=== PATIENT | female | born 1975 | race Caucasian/White ===

== ENCOUNTER 2020-12-21 09:36 | Outpatient (REF) | payer OTHER, SELFPAY ==
--- NOTE | ~2020-12-21 | XR_ITS ---
EXAMINATION: XR FOOT, LEFT CLINICAL INFORMATION: Left foot pain. COMPARISON: None. TECHNIQUE: AP, lateral, and oblique views of the left foot. FINDINGS: No acute fracture. Hallux valgus angulation at the 1st metatarsophalangeal joint with lateral subluxation of the hallux sesamoids and mild degenerative arthritis. No osseous erosion. Plantar calcaneal spur. No radiopaque foreign body. XR/XR foot LT min 3V IMPRESSION: 1. No acute fracture or dislocation. 2. Plantar calcaneal spur. 3. First metatarsophalangeal hallux valgus angulation with mild degenerative arthritis.
== END 2020-12-21 09:37 | disposition home or self-care (01) ==
LOC: HO.HMGCX 09:36
PROVIDERS: Visit Provider Hospitalist
DX: M79.672 Pain in left foot (principal)
CPT/HCPCS: 73630

== ENCOUNTER 2021-10-01 08:51 | Outpatient (REF) | payer OTHER, SELFPAY ==
[2021-10-01 09:15] LABS: MANUAL DIFF FLAG NO
[2021-10-01 09:49] LABS: Basophils Percent Auto 0.3 % (0-2); Eosinophils Absolute Auto 0.1 X10*3/uL (0.0-0.4); Eosinophils Percent Auto 0.9 % (0-4); Hematocrit 40.5 % (37.0-47.0); Hemoglobin 12.9 g/dl (12.0-16.0); Imm Gran Abs Auto 0.04 X10*3/uL (0.00-0.03); Imm Gran Pct Auto 0.4 % (0.0-0.4); Lymphocytes Absolute Auto 2.7 X10*3/uL (1.2-4.9); Lymphocytes Percent Auto 28.1 % (20-40); Mean Corpuscular HGB Conc 31.9 g/dl (31.0-35.0); Mean Corpuscular Hemoglobin 26.2 pg (27.0-33.0); Mean Corpuscular Volume 82.3 fL (80.0-98.0); Mean Platelet Volume 10.8 fL (9.4-12.3); Monocytes Absolute Auto 0.5 X10*3/uL (0.1-1.2); Monocytes Percent Auto 5.2 % (2-11); Neutrophils Absolute Auto 6.2 x10*3/uL (2.0-8.3); Neutrophils Percent Auto 65.1 % (45-73); Platelet Count 232 X10*3/uL (160-400); Red Blood Count 4.92 X10*6/uL (4.20-5.50); Red Cell Distribution Width 14.5 % (11.0-16.0); White Blood Count 9.6 X10*3/uL (4.8-10.8)
[2021-10-01 10:25] LABS: Alanine Aminotransferase 29 U/L (0-31); Albumin Level 3.8 g/dL (3.5-5.0); Alkaline Phosphatase 71 U/L (39-117); Anion Gap 11 (12-20); Aspartate Amino Transferase 19 U/L (5-31); Bilirubin Total 0.5 mg/dL (0.0-1.0); Blood Urea Nitrogen 10 mg/dL (9-16); Carbon Dioxide 25 mmol/L (22-29); Chloride 104 mmol/L (96-108); Cholesterol 200 mg/dL; Estimated Glomerular Filt Rate > 60; Glucose Fasting 100 mg/dL (60-99); Potassium 4.3 mmol/L (3.3-5.1); Sodium 136 mmol/L (135-145); Total Protein 6.8 g/dL (6.5-8.0); Triglycerides 168 mg/dL
[2021-10-01 10:37] LABS: HDL Cholesterol 40 mg/dL; LDL Cholesterol Calculated 127 mg/dl
[2021-10-01 10:47] LABS: Thyroid Stimulating Hormone 1.31 uIU/mL (0.32-4.0)
[2021-10-01 11:53] LABS: Reflex LDLD? No
== END 2021-10-01 08:52 | disposition home or self-care (01) ==
LOC: HO.LAB 08:51
PROVIDERS: PCP Family Medicine; Visit Provider Family Medicine
DX: Z00.00 Encounter for general adult medical examination without abnormal findings (principal)
CPT/HCPCS: 36415; 80053; 80061; 84443; 85025

== ENCOUNTER 2022-11-03 07:51 | Outpatient (REF) | payer OTHER, SELFPAY ==
[2022-11-03 07:59] LABS: MANUAL DIFF FLAG NO
[2022-11-03 08:54] LABS: Basophils Percent Auto 0.5 % (0-2); Eosinophils Absolute Auto 0.1 X10*3/uL (0.0-0.4); Eosinophils Percent Auto 1.3 % (0-4); Hematocrit 40.4 % (37.0-47.0); Hemoglobin 12.7 g/dl (12.0-16.0); Imm Gran Abs Auto 0.04 X10*3/uL (0.00-0.03); Imm Gran Pct Auto 0.5 % (0.0-0.4); Lymphocytes Absolute Auto 2.8 X10*3/uL (1.2-4.9); Mean Corpuscular HGB Conc 31.4 g/dl (31.0-35.0); Mean Corpuscular Volume 79.4 fL (80.0-98.0); Mean Platelet Volume 10.5 fL (9.4-12.3); Monocytes Absolute Auto 0.6 X10*3/uL (0.1-1.2); Neutrophils Absolute Auto 4.3 x10*3/uL (2.0-8.3); Neutrophils Percent Auto 54.7 % (45-73); Platelet Count 284 X10*3/uL (160-400); Red Blood Count 5.09 X10*6/uL (4.20-5.50); Red Cell Distribution Width 15.8 % (11.0-16.0); White Blood Count 7.9 X10*3/uL (4.8-10.8)
[2022-11-03 09:30] LABS: Alanine Aminotransferase 26 U/L (0-31); Albumin Level 3.9 g/dL (3.5-5.0); Alkaline Phosphatase 64 U/L (39-117); Anion Gap 13 (12-20); Aspartate Amino Transferase 22 U/L (5-31); Blood Urea Nitrogen 12 mg/dL (9-16); Calcium 9.1 mg/dL (8.4-10.2); Carbon Dioxide 27 mmol/L (22-29); Chloride 106 mmol/L (96-108); Cholesterol 219 mg/dL; Estimated Glomerular Filt Rate > 60; Glucose Fasting 108 mg/dL (60-99); HDL Cholesterol 41 mg/dL; LDL Cholesterol Calculated 147 mg/dl; Potassium 4.6 mmol/L (3.3-5.1); Sodium 141 mmol/L (135-145); Total Protein 6.7 g/dL (6.5-8.0); Triglycerides 155 mg/dL
[2022-11-03 09:48] LABS: Thyroid Stimulating Hormone 1.09 uIU/mL (0.32-4.0)
[2022-11-03 09:54] LABS: Reflex LDLD? No
== END 2022-11-03 07:52 | disposition home or self-care (01) ==
LOC: HO.LAB 07:51
PROVIDERS: PCP Family Medicine; Visit Provider Family Medicine
DX: Z00.00 Encounter for general adult medical examination without abnormal findings (principal); R03.0 Elevated blood-pressure reading, without diagnosis of hypertension; E66.09 Other obesity due to excess calories; D89.89 Other specified disorders involving the immune mechanism, not elsewhere classified; F32.A Depression, unspecified; F41.9 Anxiety disorder, unspecified
CPT/HCPCS: 36415; 80053; 80061; 84443; 85025

== ENCOUNTER 2023-07-26 13:23 | Outpatient (AMB) | payer OTHER, SELFPAY ==
[2023-07-26 13:39] VITALS: BP 124/82; PULSE 84; BMI 38.2
--- NOTE | 2023-07-26 13:39 | MHC.OFFVIS ---
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 She is a pleasant 48-year-old woman with prior history of hypertension, in the past had tried hydrochlorothiazide but developed side effects and stopped. Since then she has had continues high blood pressure and recently a brother being diagnosed with diabetes she wanted to take care of her health and increase exercise level. However with exercise she has notice exertional shortness of breath and also is noting chest pressure with exertion. She is concerned about the symptoms due to significant premature coronary artery disease in a dad who had his 1st cardiac event in the 40s. Patient also has mild hyperlipidemia with last LDL of 147 mg/dL. No known prior vascular disease. No history of diabetes although her fasting glucose is mildly elevated 108. She does say that she has high likelihood of obstructive sleep apnea as she has been told by her partner that she may have that. She denies any smoking. Denies any lightheadedness, syncope. No heart failure symptoms. Denies any prolonged palpitations irregular heartbeat although occasionally feels fluttering in her chest. She also has trying to reduce salt in her diet. [facility]MERLY [facility], [facility]–1983 Medical History HTN (hypertension) Family History Father CAD (coronary artery disease) Mother HTN (hypertension) Social History Patient Tobacco Use Status: Never used Tobacco Review of Systems Const Denies chills, Denies daytime sleepiness, Denies fatigue, Denies fever(s), Denies frequent falls, Denies poor appetite, Denies snoring, Denies stops breathing during sleep, Denies weakness, Denies weight gain and Denies weight loss Eyes Denies loss of vision ENT Denies dizziness and Denies hearing loss Card Denies chest pain, Denies claudication, Denies leg edema, Denies lightheadedness, Denies palpitations, Denies dyspnea, Denies dyspnea on exertion and Denies orthopnea Resp Denies cough, Denies excessive phlegm production, Denies dyspnea, Denies dyspnea on exertion, Denies snoring and Denies wheezing GI Denies abdominal pain, Denies hematochezia, Denies change in bowel habits, Denies nausea and Denies vomiting Denies urinary frequency and Denies dysuria Musc Denies arthralgias, Denies muscle weakness, Denies numbness and Denies other (frequent falls) Skin/Breast Denies nail changes and Denies rash Neuro Denies Abnormal speech present, Denies dizziness, Denies frequent falls, Denies loss of vision, Denies memory loss, Denies numbness and Denies weakness Psych Denies depression and Denies memory loss Endo Denies fatigue and Denies palpitations Alex/Lymph Reports easy bruising and Reports other (anemia) Aller/Immun Denies wheezing Physical Exam Vital Signs: Last Vital Signs Pulse 84 07/26/23 13:39 BP 124/82 07/26/23 13:39 BMI result Body Mass Index 38.2 Const General: cooperative, comfortable, no acute distress, alert, awake, Physically active and well groomed Nutritional Appearance: obese Orientation/consciousness: patient oriented x3 Limitations: no limitations HEENT Head: Yes normocephalic and Yes atraumatic Neck Neck: Yes trachea midline, Yes supple and Yes no JVD Resp Effort & Inspection: normal respiratory effort Auscultation: clear to auscultation bilaterally Cardio Jugular venous distension: no JVD Palpation: normal PMI Rate: regular rate Rhythm: regular rhythm Heart sounds: S1 normal heart sound present, S2 normal heart sound present, no click, no gallops, no murmurs and no rubs GI Auscultation: normal bowel sounds Skin General skin exam: no rashes or lesions noted Neuro General: patient oriented x3 and no focal motor deficits Speech: No Abnormal speech present Extrem General: Yes no clubbing, cyanosis or edema Psych Appearance: grossly normal Office Procedures EKG Details: EKG shows normal sinus rhythm with normal EKG [id number], Complete Assessment & Plan Assessment & Plan (1) Exertional chest pain: Code(s): R07.9 - Chest pain, unspecified Plan: Exertional chest pain in this middle-aged woman with multiple risk factors including hypertension, hyperlipidemia, strong family history for premature coronary artery disease as well as obesity. There is likelihood of underlying obstructive coronary artery disease. Although symptoms could also be due to uncontrolled blood pressure with exercise. Will suggest exercise stress echocardiogram to evaluate for myocardial ischemia as well as to evaluate hemodynamic response to exercise. This test will be scheduled in near future. Will also suggest an echocardiogram to well for hypertensive heart disease that could explain exertional chest pain. These tests will be scheduled in near future. Meanwhile advise aggressive risk factor modification. If myocardial ischemia is ruled out would suggest coronary calcium score to evaluate and treat presence of atherosclerosis aggressively. This was discussed with her in details. She understands and agrees. (2) HTN (hypertension): Code(s): I10 - Essential (primary) hypertension Plan: Hypertension which on today's exam appears to be well controlled although she says at home the blood pressure ranges from systolic 140-160. I have advised her to maintain a log and presented at next visit. Meanwhile we discussed about management of hypertension including lifestyle modification with continued slow weight reduction as well as reduction and salt intake in her diet. Also stress mitigation strategies need to be pursued. If she remains hypertensive, will require alternative therapy and given that she had side effects hydrochlorothiazide can consider use of angiotensin receptor blockers. Meanwhile she has also had high likelihood of obstructive sleep apnea and suggestive home sleep study for the same. Importance of management of high blood pressure was discussed. She understands and agrees. Will follow up in 6 weeks time, sooner p.r.n.. Thank you for allowing me to partake in her care Orders: Orders CA echo stress exercise Today R07.9 - Chest pain, unspecified CA echo transthoracic complete Today R07.9 - Chest pain, unspecified RT home sleep study Today I10 - Essential (primary) hypertension, R06.81 - Apnea, not elsewhere classified Coding Level of Care Code New Pt Level 4 (83413) Diagnoses Exertional chest pain R07.9 HTN (hypertension) I10 CPT Codes EKG - CPT: [id number], Complete ([id number])
== END 2023-07-26 14:17 | disposition home or self-care (01) ==
PROVIDERS: PCP Family Medicine; Visit Provider Internal Medicine Cardiovascular Disease
DX: R07.9 Chest pain, unspecified (principal); I10 Essential (primary) hypertension
CPT/HCPCS: 93010; 99204

== ENCOUNTER → 2023-07-26 13:23 | Outpatient (BNVA) | payer OTHER, SELFPAY | PROVIDERS: PCP Family Medicine; Visit Provider Internal Medicine Cardiovascular Disease | DX: R07.89 Other chest pain (principal); I10 Essential (primary) hypertension | CPT/HCPCS: 93005 ==

== ENCOUNTER → 2023-08-16 07:53 | Outpatient (REF) | payer OTHER, SELFPAY | LOC: HO.SL 07:53 | PROVIDERS: PCP Family Medicine; Visit Provider Internal Medicine Cardiovascular Disease | DX: G47.33 Obstructive sleep apnea (adult) (pediatric) (principal); I10 Essential (primary) hypertension | CPT/HCPCS: 95806 ==

== ENCOUNTER → 2023-08-16 08:05 | Outpatient (BNV) | payer OTHER, SELFPAY | PROVIDERS: PCP Family Medicine; Visit Provider Internal Medicine | DX: G47.33 Obstructive sleep apnea (adult) (pediatric) (principal) | CPT/HCPCS: 95806 ==

== ENCOUNTER → 2023-08-24 07:59 | Outpatient (REF) | payer OTHER, SELFPAY ==
--- NOTE | 2023-08-24 08:02 | CA_ITS ---
Transthoracic Echocardiogram Patient (Last, First, Middle): Erin Ramirez Ann Gender: Female Date of : 1975 Age: 48 Procedure Date: 08/24/2023 Procedure Type: Transthoracic Echocardiogram Location: OP Height: 162.56 cm Weight: 99.79 kg BSA: 2.04 m2 Heart Rate: bpm BP: 156 / 96 mmHg Geological Aide: CASEY Referring MD: Celso Coleman MD Symptoms: R07.9 - Chest pain, unspecified Study Quality: Adequate ECG Rhythm: Sinus Conclusions: - The left ventricular systolic function is normal. The calculated ejection fraction is 58% by biplane method. - No obvious valvular pathology seen on this study. Findings Left Ventricle Normal left ventricular cavity size. The left ventricular systolic function is normal. The calculated ejection fraction is 58% by biplane method. There is no evidence of regional wall motion abnormalities. Diastolic function is normal for age. There is mild septal asymmetric hypertrophy. LV peak GLS 18.8%. Right Ventricle Normal right ventricular cavity size and systolic function. Atria Both atria are normal in size. Aortic Valve There is a normal trileaflet aortic valve. There is no aortic valve stenosis. There is no aortic valve regurgitation. Mitral Valve The mitral valve appears normal. There is no mitral valve regurgitation. There is no mitral valve stenosis. Pulmonic Valve The pulmonic valve is likely normal. Tricuspid Valve There is no tricuspid valve regurgitation. Tricuspid regurgitation envelope is inadequate for calculation of right ventricular systolic pressure. Great Vessels The asc aorta and aortic arch are normal in size. Venous The inferior vena cava is normal in size and collapses greater than 50% with inspiration. Pericardium/Pleural There is no evidence of pericardial effusion. Prior Study Comparison No prior study available for comparison. Recommendations, Care & Conclusions No obvious valvular pathology seen on this study. Measurements 2D Linear Measurements IVSd: 1.14 0.6-0.9/0.6-1.0 cm LVIDd: 5.20 3.9-5.3/4.2-5.9 cm LVIDd Index: 2.55 2.4-3.2/2.2-3.1 cm/m2 LVIDs: 2.73 2.0-3.6 cm LVPWd: 0.98 0.7-1.1 cm LA Diam: 3.80 2.7-3.8/3.0-4.0 cm LAIDs Index: 1.86 1.5-2.3 cm/m2 LV Mass: 261.01 67-162/88-224 g LV Mass Index: 127.95 43-95/49-115 g/m2 LVOT Diam: 1.90 3.0+(-)1.3 cm 2D Systolic Function EF 4C: 56.50 >55% EF 2C: 62.30 >55% EF BiP: 58.00 >55% Mitral Valve MV Pk E: 0.93 MV PK A: 0.93 MV Decel Time: 143.00 E/A: 1.00 E'Lateral: 8.81 E'Medial: 6.09 E/E' Med: 15.30 E/E' Lat: 10.60 PHT: 42.00 MVA PHT: 5.24 Decel Bethel: 6.55 Aortic Valve AoV Pk Fred: 1.50 AoV Mn Fred: 1.07 AoV VTI: 0.33 AoV Pk Grad: 9.00 Aov Mn Grad: 5.00 LEON Cont.VTI: 1.95 LVOT LVOT Pk Fred: 0.89 LVOT Mn Fred: 0.64 LVOT VTI: 0.23 LVOT Pk Grad: 3.00 LVOT Mn Grad: 2.00 LVOT Diam: 1.90 LVOT Area: 2.84 Diastolic Function MV Pk E: 0.93 MV Pk A: 0.93 E/A: 1.00 E'Medial: 6.09 E/E' Med: 15.30 E' Laterial: 8.81 E/E' Lat: 10.60 Right Ventricle TAPSE (mm): 19.80 TVS' Fred: 12.60 Tricuspid Valve RA Press: 3.00 Great Vessels Aorta Sinus of Valsalva: 2.97 2.0-3.[address] [place]: 2.32 1.7-3.4 cm Ao Asc: 2.90 2.1-3.4 cm Ao Arch: 2.90 Updated in Other Vendor System with Status of Final Benny Estes MD electronically signed on 08/26/2023 1:40:53 PM with status of Final
== END ==
LOC: HO.CARD 07:59
PROVIDERS: PCP Family Medicine; Visit Provider Internal Medicine Cardiovascular Disease
DX: R07.9 Chest pain, unspecified (principal)
CPT/HCPCS: 93306

== ENCOUNTER → 2023-08-24 08:02 | Outpatient (BNV) | payer OTHER, SELFPAY | PROVIDERS: PCP Family Medicine; Visit Provider Internal Medicine | DX: R07.9 Chest pain, unspecified (principal) | CPT/HCPCS: 93306 ==

== ENCOUNTER → 2023-08-25 10:55 | Outpatient (REF) | payer OTHER, SELFPAY ==
--- NOTE | 2023-08-25 10:57 | CA_ITS ---
Acquisition Time: 2023-08-25 11:04:27 Total Exercise Time: 00:06:33 Test Indications: Chest Pain Medications: Atorvastatin lamictal vilazodone Protocol: JOSE LUIS Max HR: 142 BPM 83% of Pred: 171 BPM Max BP: 172/084 mmHG Max Work Load: 7.8 METS Exercise stress test exercise 6 min 33 sec of Jose Luis protocol achieving 80% MPHR, with request to stop due to moderate SOB, no chest discomfort, without arrhythmias, with normotensive response to exercise but resting HTN, without EKG changes. Breathing returned to normal with rest. Echo images obtained by tech at rest and imnmedately post peak exericse, Definity contrast used. Test reviewed with Dr. Rose. Exercise echocardiogram reviewed. At rest, there is normal LVEF and wall motion. With peak exercise, there is appropriate augmentation of wall thickening and contractility. There is normal decrease in end-systolic volumes. Overall, normal study at attained workload. Referred By: Celso Coleman Overread By: BEL ROSE
== END ==
LOC: HO.CARD 10:55
PROVIDERS: PCP Family Medicine; Visit Provider Internal Medicine Cardiovascular Disease
DX: R07.9 Chest pain, unspecified (principal)
CPT/HCPCS: 93350; 93356; Q9957

== ENCOUNTER → 2023-08-25 10:57 | Outpatient (BNV) | payer OTHER, SELFPAY | PROVIDERS: PCP Family Medicine; Visit Provider Internal Medicine | DX: R06.02 Shortness of breath (principal) | CPT/HCPCS: 93016; 93018; 93350; 93352 ==

== ENCOUNTER 2023-09-05 15:07 | Outpatient (AMB) | payer OTHER, SELFPAY ==
[2023-09-05 15:20] VITALS: BP 132/70; PULSE 85; BMI 37.5
--- NOTE | 2023-09-05 15:20 | A.OFFVIS_ITS ---
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 She underwent a stress echocardiogram which had 8 minute showed no evidence of ischemia although she had a heart rate of up to 80%. She had an echocardiogram which shows normal structure of the heart. She continues to exertional chest discomfort although she says this can limit her exercise activity. She takes all her medications. No clear elevated blood pressure reported. She does have mild hyperlipidemia. [facility] Medical History HTN (hypertension) Family History Father CAD (coronary artery disease) Mother HTN (hypertension) Social History Patient Tobacco Use Status: Never used Tobacco Review of Systems Const Denies chills, Denies fatigue, Denies fever(s), Denies frequent falls, Denies weakness, Denies weight gain and Denies weight loss ENT Denies dizziness Card Denies chest pain, Denies leg edema, Denies lightheadedness, Denies palpitations, Denies dyspnea, Denies dyspnea on exertion, Denies orthopnea and Denies other (loss of consciousness) Resp Denies cough, Denies dyspnea and Denies dyspnea on exertion GI Denies hematochezia and Denies change in stool character Musc Denies abnormal gait, Denies muscle weakness, Denies numbness, Denies radiating pain into limb and Denies tingling Neuro Denies Abnormal speech present, Denies abnormal gait, Denies dizziness, Denies frequent falls, Denies numbness, Denies tingling and Denies weakness Endo Denies fatigue and Denies palpitations Physical Exam Vital Signs: Last Vital Signs Pulse 85 09/05/23 15:20 BP 132/70 09/05/23 15:20 BMI result Body Mass Index 37.5 Const General: cooperative, comfortable, no acute distress, alert, awake, Physically active and well groomed Nutritional Appearance: obese Orientation/consciousness: patient oriented x3 Limitations: no limitations HEENT Head: Yes normocephalic and Yes atraumatic Neck Neck: Yes trachea midline, Yes supple and Yes no JVD Resp Effort & Inspection: normal respiratory effort Auscultation: clear to auscultation bilaterally Cardio Jugular venous distension: no JVD Palpation: normal PMI Rate: regular rate Rhythm: regular rhythm Heart sounds: S1 normal heart sound present, S2 normal heart sound present, no click, no gallops, no murmurs and no rubs GI Auscultation: normal bowel sounds Skin General skin exam: no rashes or lesions noted Neuro General: patient oriented x3 and no focal motor deficits Speech: No Abnormal speech present Extrem General: Yes no clubbing, cyanosis or edema Psych Appearance: grossly normal Assessment & Plan Assessment & Plan (1) Exertional chest pain: Code(s): R07.9 - Chest pain, unspecified Plan: Patient with persistent exertional chest tightness with negative stress echocardiogram at symptom limited stress test with 80% age predicted maximum heart rate and 8 Mets of physical activity. Good prognosis with this was discussed. She also has normal echocardiogram with no structural abnormality. She continues to have symptoms consider pulmonary workup to evaluate for bronchospastic airway disease. Given her risk factors with discussed about coronary calcium score to further assess risk, she wants to defer it at this point time. Continue to gradually build up on exercise capacity. If she continues to have some limiting symptoms and her pulmonary function is within normal limits can consider evaluating with coronary CTA. Will follow up in the clinic if need be. Thank you for allowing me to partake in the care Coding Level of Care Code Est Pt Level 3 (28517) Diagnoses Exertional chest pain R07.9
== END 2023-09-05 15:43 | disposition home or self-care (01) ==
PROVIDERS: PCP Family Medicine; Visit Provider Internal Medicine Cardiovascular Disease
DX: R07.9 Chest pain, unspecified (principal)
CPT/HCPCS: 99213

== ENCOUNTER → 2023-09-05 15:07 | Outpatient (BNVA) | payer OTHER, SELFPAY | PROVIDERS: PCP Family Medicine; Visit Provider Internal Medicine Cardiovascular Disease ==

== ENCOUNTER 2023-10-26 08:21 | Outpatient (AMB) | payer OTHER, SELFPAY ==
--- NOTE | 2023-10-26 08:49 | MHC.OFFVIS ---
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 Pt had a home sleep study done. She had chest pressure and heart racing, evaluated by traveling nurse and recommended to have sleep study and stress test done. Pt reports the stress test was normal. The home sleep study result was significant for a mild degree of sleep apnea. The total sleep time AHI was 11/hr, oxygen tonia was 80%, and O2 sat below 88% for 7 min. Pt reports snoring and nocturia, difficulty staying sleep. She tosses and turns, wakes up frequently. Denies legs cramping. Sleep hygiene questionnaire: What is your usual sleep routine? Usual bedtime is at 8:30 pm; Usual wake up time is at 5 am. Do you take naps? No. Is your sleep environment cool, dark, and quiet? Yes. Do you exercise? No. Do you take caffeine or other stimulants? Yes. Do you use electronics in bed? Yes What is your work schedule? 7:30 -5 pm. [facility] Medical History HTN (hypertension) Family History Father CAD (coronary artery disease) Mother HTN (hypertension) Social History Patient Tobacco Use Status: Never used Tobacco Review of Systems Const All systems reviewed & are unremarkable except as noted in HPI and below Physical Exam Vital Signs: Last Vital Signs Temp 97 F 10/26/23 08:53 Pulse 85 10/26/23 08:53 BP 140/90 H 10/26/23 08:53 Pulse Ox 97 10/26/23 08:53 Oxygen Delivery Method Room Air 10/26/23 08:53 BMI result Body Mass Index 37.5 Const General: cooperative Nutritional Appearance: obese Orientation/consciousness: patient oriented x3 Neck Neck: Yes full ROM and Yes supple Resp Effort & Inspection: normal respiratory effort and able to speak in complete sentences Neuro General: patient oriented x3 and gait normal Cranial nerves: Yes CN's II-XII intact bilaterally Cognition (Neuro): normal cognition Gait exam (Neuro): Normal gait present Motor exam (neuro): 5/5 motor strength present throughout Psych Appearance: grossly normal Mental Status: mental status grossly normal Speech and movement: Normal speech and movement present Affect: normal affect Attitude: cooperative Assessment & Plan Assessment & Plan (1) CHAYA (obstructive sleep apnea): Comment: Mild degree of sleep apnea. The AHI was 11/hr and oxygen tonia was 80%. Code(s): G47.33 - Obstructive sleep apnea (adult) (pediatric) Plan Advised patient to start APAP [id number]. Stressed compliance, use CPAP nightly and more than 4 hrs. Sleep hygiene education provided and advised patient to try magnesium supplement for sleep. Wt reduction advised. Coding Level of Care Code New Pt Level 3 (09813) Diagnoses CHAYA (obstructive sleep apnea) G47.33
[2023-10-26 08:53] VITALS: BP 140/90; PULSE 85; TEMP 36.1; O2SAT 97; BMI 37.5
== END 2023-10-26 09:16 | disposition home or self-care (01) ==
PROVIDERS: PCP Family Medicine; Visit Provider Nurse Practitioner Family
DX: G47.33 Obstructive sleep apnea (adult) (pediatric) (principal)
CPT/HCPCS: 99203

== ENCOUNTER → 2023-10-26 08:21 | Outpatient (BNVA) | payer OTHER, SELFPAY | PROVIDERS: PCP Family Medicine; Visit Provider Nurse Practitioner Family ==

== ENCOUNTER 2024-01-12 09:54 | Outpatient (AMB) | payer OTHER, SELFPAY ==
--- NOTE | 2024-01-12 10:01 | A.OFFVIS_ITS ---
Vital Signs 01/12/24 10:05 Height 5 ft 4 in Weight 223 lb 6 oz BMI 38.3 BP 142/80 H Blood Pressure Location Lt brachial Position Sitting Pulse 81 Pulse Source Pulse Oximeter Pulse Oximetry (%) 96 Oxygen Delivery Method Room Air Intake Visit Reasons: 4m follow up CHAYA-CONF Intake Note: Patient presents for 4 months f/u. Allergies No Known Allergies Allergy (Verified 01/12/24 10:04) HPI Comments Details: 48 y/o female patient presents for follow up of sleep study. The home sleep study result was significant for a mild degree of sleep apnea. The AHI was 11.2/hr and oxygen tonia was 80%, O2 sat below 88% was for 7 min. Pt started APAP at [id number]. The CPAP compliance and therapy response (10/13/23-01/10/24) reviewed. The usage days 71% and the average usage hours 7 hrs 15 min. The max pressure was 14.7 and the residual AHI was 1.8/hr. Pt had issue with the CPAP mask, leaking a lot, and she borrowed different mask from her family member. The new mask fits well. Pt reports she sleeps well with CPAP, rested and daytime sleepiness has improved. She does not doze off while driving. [facility] Medical History HTN (hypertension) Family History Father CAD (coronary artery disease) Mother HTN (hypertension) Social History Patient Tobacco Use Status: Never used Tobacco Review of Systems Const All systems reviewed & are unremarkable except as noted in HPI and below Physical Exam Vital Signs: Last Vital Signs Pulse 81 01/12/24 10:05 BP 142/80 H 01/12/24 10:05 Pulse Ox 96 01/12/24 10:05 Oxygen Delivery Method Room Air 01/12/24 10:05 BMI result Body Mass Index 38.3 Const General: cooperative Nutritional Appearance: obese Orientation/consciousness: patient oriented x3 Neck Neck: Yes full ROM and Yes supple Resp Effort & Inspection: normal respiratory effort and able to speak in complete sentences Neuro General: patient oriented x3 and gait normal Cranial nerves: Yes CN's II-XII intact bilaterally Cognition (Neuro): normal cognition Gait exam (Neuro): Normal gait present Motor exam (neuro): 5/5 motor strength present throughout Psych Appearance: grossly normal Mental Status: mental status grossly normal Speech and movement: Normal speech and movement present Affect: normal affect Attitude: cooperative Assessment & Plan Assessment & Plan (1) CHAYA (obstructive sleep apnea): Comment: Mild degree of sleep apnea. The AHI was 11/hr and oxygen tonia was 80%. Code(s): G47.33 - Obstructive sleep apnea (adult) (pediatric) Category: Medical Plan Advised patient to start APAP [id number]. Stressed compliance, use CPAP nightly and more than 4 hrs. New mask prescription with C walk in information given to patient. Sleep hygiene education provided and advised patient to try magnesium supplement for sleep. Wt reduction advised. Coding Level of Care Code Est Pt Level 3 (16803) Diagnoses CHAYA (obstructive sleep apnea) G47.33
[2024-01-12 10:05] VITALS: BP 142/80; PULSE 81; O2SAT 96; BMI 38.3
== END 2024-01-12 10:18 | disposition home or self-care (01) ==
PROVIDERS: PCP Family Medicine; Visit Provider Nurse Practitioner Family
DX: G47.33 Obstructive sleep apnea (adult) (pediatric) (principal)
CPT/HCPCS: 99213

== ENCOUNTER → 2024-01-12 09:54 | Outpatient (BNVA) | payer OTHER, SELFPAY | PROVIDERS: PCP Family Medicine; Visit Provider Nurse Practitioner Family ==

== ENCOUNTER 2024-07-23 11:03 | Outpatient (AMB) | payer OTHER, SELFPAY ==
[2024-07-23 11:05] VITALS: BP 162/102; PULSE 97; O2SAT 99; BMI 34.3
--- NOTE | 2024-07-23 11:05 | MHC.OFFVIS ---
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 Since the last visit, pt did start APAP. Initially she was very compliant. However, she is undergoing a divorce from her and she stopped using the CPAP as it made her remember her to be ex- reminding her to use the APAP every night. She states she does not feel that using the machine now will be so triggering, however she has just lost the habit of using it. She has had a 22lb wt loss- attributes to stress but also intentionally trying to move more. [place] [id number] Email: [email or web address] Compl[employer] Report Usage 04/23/2024 - 07/21/2024 Usage days 50/90 days (56%) >= 4 hours 45 days (50%) < 4 hours 5 days (6%) Average usage (days used) 6 hours 12 minutes [employer] 10 AutoSet Serial number [id number] Mode AutoSet Min Pressure 6 cmH2O Max Pressure 20 cmH2O EPR Fulltime EPR level 2 Response Standard Therapy Pressure - cmH2O Median: 7.6 95th percentile: 9.6 Maximum: 10.8 Leaks - L/min Median: 0.1 95th percentile: 3.4 Maximum: 6.9 Events per hour AI: 0.4 HI: 0.2 AHI: 0.6 Apnea Index Central: 0.1 Obstructive: 0.3 Unknown: 0.0 RERA Index 0.0 PFSH Medical History HTN (hypertension) Family History Father CAD (coronary artery disease) Mother HTN (hypertension) Social History Patient Tobacco Use Status: Never used Tobacco Physical Exam Vital Signs: Last Vital Signs Pulse 97 07/23/24 11:05 BP 162/102 H 07/23/24 11:05 Pulse Ox 99 07/23/24 11:05 Oxygen Delivery Method Room Air 07/23/24 11:05 BMI result Body Mass Index 34.3 Const General: no acute distress Orientation/consciousness: patient oriented x3 Resp Effort & Inspection: normal respiratory effort and able to speak in complete sentences Neuro General: patient oriented x3 Psych Mental Status: mental status grossly normal Speech and movement: Clear speech present Attitude: cooperative Assessment & Plan Assessment & Plan (1) CHAYA (obstructive sleep apnea): Comment: Mild degree of sleep apnea. The AHI was 11/hr and oxygen tonia was 80%. Code(s): G47.33 - Obstructive sleep apnea (adult) (pediatric) Category: Medical Plan Resume APAP 5-20 cmH2O w/ EPR 3 nightly > 4 hours, as pt continues to have good clinical effect from use. Clean CPAP machine and supplies routinely. Change CPAP supplies routinely. Pt to contact us or respiratory company with any questions or concerns. Coding Level of Care Code Est Pt Level 3 (24032) Diagnoses CHAYA (obstructive sleep apnea) G47.33
== END 2024-07-23 11:36 | disposition home or self-care (01) ==
LOC: HO.HSMS 11:03
PROVIDERS: PCP Family Medicine; Visit Provider Nurse Practitioner Family
DX: G47.33 Obstructive sleep apnea (adult) (pediatric) (principal)
CPT/HCPCS: 99213